=== PATIENT | male | born 1935 | race Caucasian/White ===

== ENCOUNTER 2021-09-25 19:22 | Emergency (ER) | payer MEDICARE, BC ==
[2021-09-25 19:30] VITALS: BP 132/66; PULSE 105
[2021-09-25 21:50] LABS: ANION GAP 8.5 meq/L (7-15); CHLORIDE,CL 103 mmol/L (98-107); ESTIMATED GFR 68 mL/min (>=60); SODIUM,NA 138 mmol/L (136-145)
== END 2021-09-25 22:15 ==
LOC: LL.ED 19:22
DX: S00.03XA Contusion of scalp, initial encounter (principal); E11.9 Type 2 diabetes mellitus without complications; N40.0 Benign prostatic hyperplasia without lower urinary tract symptoms; Z88.0 Allergy status to penicillin; Z79.899 Other long term (current) drug therapy; W05.0XXA Fall from non-moving wheelchair, initial encounter
CPT/HCPCS: 36415; 70450; 80053; 85025; 99284